=== PATIENT | female | born 1935 | race Asian ===

== ENCOUNTER 2018-12-15 14:17 | Emergency (ER) | payer MEDICARE, MEDICAID ==
[~2018-12-15] VITALS: Ht 154.9 cm; Wt 54.4 kg
[2018-12-15 14:30] VITALS: BP 139/84
[2018-12-15] MEDS ORDERED: Ipratropium 0.02% Inh Soln 2.5ml UD HHN ONE (14:30)
[2018-12-15] MEDS ORDERED: Albuterol ud Inhalation HHN ONE (14:30)
--- NOTE | 2018-12-15 14:30 | NUR ---
ED Nurse Note: pt brought in to ER by ambulance due to SOB. pt aao x0 and skin clean and intact. per daughter at bedside, pt does not have any medical history and current medications besides Alzheimer's disease.
--- NOTE | 2018-12-15 15:18 | Emergency Room Report ---
History of Present Illness General Chief Complaint: Dyspnea/Respdistress Source: Patient Present Illness HPI 83-year-old female brought via EMS for evaluation of cough congestion and respiratory distress. Daughter at bedside states that patient has had a cough times one week. Coming from home. States that patient has no medical problems. Did not receive flu shot this year as she is bedbound for the last 3 years. Does not normally go to the doctor. Afebrile. Denies chest pain or shortness of breath. Denies history of asthma or COPD. Denies smoking. No other aggravating relieving factors. Denies any other associated symptoms Allergies: Coded Allergies: No Known Allergies (Unverified , 12/15/18) Patient History Past Medical History: none Past Surgical History: none Pertinent Family History: none Social History: Denies: smoking, alcohol use, drug use Now: No Immunizations: UTD Reviewed Nursing Documentation: PMH: Agreed; PSxH: Agreed Nursing Documentation-PMH Past Medical History: No Stated History Review of Systems All Other Systems: negative except mentioned in HPI Physical Exam Vital Signs Date Time Temp Pulse Resp B/P (MAP) Pulse Ox O2 Delivery O2 Flow Rate FiO2 12/15/18 14:06 118 22 133/86 92 Non-Rebreather 15.0 Sp02 EP Interpretation: reviewed, normal General Appearance: no apparent distress, alert, GCS 15, non-toxic Head: normocephalic, atraumatic Eyes: bilateral eye normal inspection, bilateral eye PERRL ENT: hearing grossly normal, normal pharynx, no angioedema, normal voice Neck: full range of motion, supple/symm/no masses Respiratory: chest non-tender, normal breath sounds, crackles, speaking full sentences Cardiovascular #1: no edema, tachycardia Cardiovascular #2: 2+ carotid (R), 2+ carotid (L), 2+ radial (R), 2+ radial (L) , 2+ dorsalis pedis (R), 2+ dorsalis pedis (L) Gastrointestinal: normal bowel sounds, non tender, soft, non-distended, no guarding, no rebound Rectal: deferred Genitourinary: normal inspection, no CVA tenderness Musculoskeletal: back normal, gait/station normal, normal range of motion, non- tender Neurologic: alert, oriented x3, responsive, motor strength/tone normal, sensory intact, speech normal Psychiatric: judgement/insight normal, memory normal, mood/affect normal, no suicidal/homicidal ideation Reflexes: 3+ bicep (R), 3+ bicep (L), 3+ tricep (R), 3+ tricep (L), 3+ knee (R) , 3+ knee (L) Skin: normal color, no rash, warm/dry, well hydrated Lymphatic: no adenopathy Medical Decision Making Diagnostic Impression: Primary Impression: Respiratory distress Additional Impressions: Sepsis Qualified Codes: A41.9 - Sepsis, unspecified organism Dehydration UTI (urinary tract infection) Qualified Codes: N39.0 - Urinary tract infection, site not specified ER Course Hospital Course 83 yo F presents to ED c/o cough/congestion Differential diagnoses include: Pneumonia, CHF exacerbation, pneumothorax, fluid overload Clinical course Patient placed on stretcher. On radiographer cardiac catheterization with hypoxia on room air and tachycardia. After initial history and physical, I ordered nebulizer treatments. I ordered labs, IV fluids, EKG, chest x-ray, blood cultures, UA. Labs - no leukocytosis, hb/hct stable, Na elevated, trop negative, lactic elevated, UA+ bacteria, flu swab negative CXR - no focal consolidation noted EKG - sinus tachycardia, no acute ischemic changes interpreted by me ABG - no acidosis, no hypercapnia, somewhat hypoxic Patient given breathing treatments. Suctioning provided. O2 sats improved. Given antibiotics. Given 30 mL per KG fluid bolus because of insurance patient will be transferred I feel this is a highly complex case requiring extensive working including EKG/ Rhythm strip, Xray/CT/US, Blood/urine lab work, repeat exams while in ED, and administration of strong opiates/narcotics for pain control, admission to hospital or close patient follow up. Diagnosis - resp distress, sepsis, dehydration, UTI Patient admitted to telemetry in stable condition Labs Test 12/15/18 14:50 12/15/18 15:00 12/15/18 15:15 12/15/18 15:45 Arterial Blood pH 7.490 (7.350-7.450) Arterial Blood Partial Pressure CO2 31.9 mmHg (35.0-45.0) Arterial Blood Partial Pressure O2 60.5 mmHg (75.0-100.0) Arterial Blood HCO3 23.8 mmol/L (22.0-26.0) Arterial Blood Oxygen Saturation 92.5 % (95-100) Arterial Blood Base Excess 1.3 (-2-2) Tacho Test Positive White Blood Count 9.3 K/UL (4.8-10.8) Red Blood Count 4.78 M/UL (4.20-5.40) Hemoglobin 15.5 G/DL (12.0-16.0) Hematocrit 45.8 % (37.0-47.0) Mean Corpuscular Volume 96 FL (80-99) Mean Corpuscular Hemoglobin 32.4 PG (27.0-31.0) Mean Corpuscular Hemoglobin Concent 33.8 G/DL (32.0-36.0) Red Cell Distribution Width 12.9 % (11.6-14.8) Platelet Count 143 K/UL (150-450) Mean Platelet Volume 10.7 FL (6.5-10.1) Neutrophils (%) (Auto) 86.0 % (45.0-75.0) Lymphocytes (%) (Auto) 8.7 % (20.0-45.0) Monocytes (%) (Auto) 4.6 % (1.0-10.0) Eosinophils (%) (Auto) 0.0 % (0.0-3.0) Basophils (%) (Auto) 0.7 % (0.0-2.0) Sodium Level 149 MMOL/L (136-145) Potassium Level 3.9 MMOL/L (3.5-5.1) Chloride Level 114 MMOL/L (98-107) Carbon Dioxide Level 25 MMOL/L (21-32) Anion Gap 10 mmol/L (5-15) Blood Urea Nitrogen 39 mg/dL (7-18) Creatinine 1.2 MG/DL (0.55-1.30) Estimat Glomerular Filtration Rate mL/min (>60) Glucose Level 158 MG/DL (74-106) Lactic Acid Level 2.60 mmol/L (0.4-2.0) 4.30 mmol/L (0.66-2.22) Calcium Level 9.1 MG/DL (8.5-10.1) Total Bilirubin 1.2 MG/DL (0.2-1.0) Direct Bilirubin 0.2 MG/DL (0.0-0.3) Aspartate Amino Transf (AST/SGOT) 17 U/L (15-37) Alanine Aminotransferase (ALT/SGPT) 14 U/L (12-78) Alkaline Phosphatase 97 U/L (46-116) Total Creatine Kinase 25 U/L (26-308) Creatine Kinase MB 1.2 NG/ML (0.0-3.6) Creatine Kinase MB Relative Index 4.8 Troponin I 0.032 ng/mL (0.000-0.056) Pro-B-Type Natriuretic Peptide 1330 pg/mL (0-125) Total Protein 7.4 G/DL (6.4-8.2) Albumin 2.5 G/DL (3.4-5.0) Globulin 4.9 g/dL Albumin/Globulin Ratio 0.5 (1.0-2.7) Urine Color Yellow Urine Appearance Very cloudy Urine pH 6 (4.5-8.0) Urine Specific [place] 1.015 (1.005-1.035) Urine Protein 3+ (NEGATIVE) Urine Glucose (UA) Negative (NEGATIVE) Urine Ketones Negative (NEGATIVE) Urine Blood 5+ (NEGATIVE) Urine Nitrite Negative (NEGATIVE) Urine Bilirubin Negative (NEGATIVE) Urine Urobilinogen 1 MG/DL (0.0-1.0) Urine Leukocyte Esterase 2+ (NEGATIVE) Urine RBC Tntc /HPF (0 - 2) Urine WBC 20-30 /HPF (0 - 2) Urine Squamous Epithelial Cells Few /LPF (NONE/OCC) Urine Bacteria Many /HPF (NONE) EKG Diagnostic Results Rate: tachycardiac Rhythm: NSR ST Segments: no acute changes ASA given to the pt in ED: No Rhythm Strip Diag. Results EP Interpretation: yes Rhythm: NSR, no PVC's, no ectopy Chest X-Ray Diagnostic Results Chest X-Ray Diagnostic Results : Chest X-Ray Ordered: Yes # of Views/Limited/Complete: 1 View Indication: Shortness of Breath EP Interpretation: Yes Interpretation: no consolidation, no effusion, no pneumothorax, no acute cardiopulmonary disease Impression: No acute disease Electronically Signed by: Electronically signed by Josef Chu MD Last Vital Signs Date Time Temp Pulse Resp B/P (MAP) Pulse Ox O2 Delivery O2 Flow Rate FiO2 12/15/18 14:38 128 22 Non-Rebreather 10.0 12/15/18 14:30 139/84 93 Status: improved Disposition: XFER S[facility]-TRM HOSP Condition: Serious Referrals: NOT CHOSEN IPA/,REFERRING (PCP) Josef Chu MD Dec 15, 2018 15:17
[2018-12-15 15:24] LABS: HEMATOCRIT 45.8 % (37.0-47.0); HEMOGLOBIN 15.5 G/DL (12.0-16.0); MEAN CORPUSCULAR VOLUME 96 FL (80-99); PLATELET COUNT 143 K/UL (150-450); RED BLOOD COUNT 4.78 M/UL (4.20-5.40); RED CELL DISTRIBUTION WIDTH 12.9 % (11.6-14.8); WHITE BLOOD COUNT 9.3 K/UL (4.8-10.8)
[2018-12-15 15:26] LABS: BASOPHILS % (AUTO) 0.7 % (0.0-2.0); LYMPHOCYTES % (AUTO) 8.7 % (20.0-45.0); MONOCYTES % (AUTO) 4.6 % (1.0-10.0)
[2018-12-15 15:35] LABS: APPEARANCE,URINE VERY CLOUDY; BILIRUBIN, URINE NEGATIVE (NEGATIVE); GLUCOSE, URINE (UA) NEGATIVE (NEGATIVE); KETONES,URINE NEGATIVE (NEGATIVE); LEUKOCYTE ESTERASE ,URINE 2+ (NEGATIVE); NITRITE,URINE NEGATIVE (NEGATIVE); PH,URINE 6 (4.5-8.0); PROTEIN,URINE 3+ (NEGATIVE); UROBILINOGEN,URINE 1 MG/DL (0.0-1.0)
[2018-12-15 15:36] LABS: COLOR,URINE YELLOW
[2018-12-15 15:36] LABS: ANION GAP 10 mmol/L (5-15); BLOOD UREA NITROGEN 39 mg/dL (7-18); CALCIUM 9.1 MG/DL (8.5-10.1); CARBON DIOXIDE 25 MMOL/L (21-32); CHLORIDE 114 MMOL/L (98-107); CREATININE 1.2 MG/DL (0.55-1.30); POTASSIUM 3.9 MMOL/L (3.5-5.1); SODIUM 149 MMOL/L (136-145)
--- NOTE | 2018-12-15 15:42 | Diagnostic Imaging Report ---
Indication: Shortness of breath Technique: One view of the chest Comparison: none Findings: No acute infiltrates, effusions, or congestion. Tortuous calcified aorta. Normal heart size. Upper mediastinum unremarkable. Calcified granulomatous lymph nodes are seen in the left pulmonary hilum There is suggestion of an unusual 1.6 x 0.8 cm expansile lesion in the cortex of the left humerus Impression: No acute process. Unusual cortical expansile lesion in the right proximal humerus. Consider dedicated humeral radiographs for further evaluation. This finding was discussed by phone with Dr. Chu in the emergency room at the time of interpretation
[2018-12-15 15:59] LABS: ALANINE AMINOTRANSFERASE 14 U/L (12-78); ALBUMIN 2.5 G/DL (3.4-5.0); ALBUMIN/GLOBULIN RATIO 0.5 (1.0-2.7); ALKALINE PHOSPHATASE 97 U/L (46-116); ASPARTATE AMINO TRANSFERASE 17 U/L (15-37); BILIRUBIN,TOTAL 1.2 MG/DL (0.2-1.0); CKMB 1.2 NG/ML (0.0-3.6); CREATINE KINASE 25 U/L (26-308)
[2018-12-15 16:01] LABS: BILIRUBIN,DIRECT 0.2 MG/DL (0.0-0.3)
[2018-12-15 16:30] VITALS: BP 117/58
--- NOTE | 2018-12-15 17:00 | NUR ---
ED Nurse Note: Family at bedside agreed with transferring pt to [facility] and signed on transfer consent with fully understanding.
--- NOTE | 2018-12-15 18:00 | NUR ---
ED Nurse Note: Report given to ABDIRASHID Braxton at [facility].
[2018-12-15 18:26] VITALS: BP 121/88
--- NOTE | 2018-12-15 19:10 | NUR ---
ED Nurse Note: ER doctor spoke to the family about pt's condition and labs results and they verbalized understanding.
--- NOTE | 2018-12-15 19:11 | NUR ---
HAND-OFF: Report given to ABDIRASHID Collado. waiting for transporation to come.
--- NOTE | 2018-12-15 19:25 | NUR ---
ED Nurse Note: RECIEVED REPORT FROM AM NURSE TO [facility]ME [facility], PT IN BED RESTING QUIETLY, NRB MASK ON, O2 SAT=97%, NO SOB OR LABORED BREATHING NOTED AT REST, PT HAS FAMILY MEMBERS AT BEDSIDE SPEAKING WITH , PT TO BE TRANSFERRED TO [facility], WAITING FOR TRANSPORT, IV SITE PATENT, ON CARDIAC MONITORING, WILL RESUME CARE ORDERED AND CLOSELY MONITOR WHILE WAITING FOR AMBULANCE.
[2018-12-15 19:30] VITALS: BP 122/78
[2018-12-15 19:35] VITALS: BP 122/78
--- NOTE | 2018-12-15 19:48 | NUR ---
ED Nurse Note: PT BEING TRANSFERRED TO [facility], [facility] HAS ARRIVED FOR TRANSPORT, RIG#[id number], ALL TRANSFER FORMS AND INFO GIVEN TO [employer], PT BEING TAKEN VIA AMBULANCE TRANSPORT, NAD NOTED DURING TRANSFER.
== END 2018-12-15 19:35 | disposition short-term general hospital (02) ==
LOC: EDBD 14:17 → EMR 14:45
DX: A41.9 Sepsis, unspecified organism (principal); R06.03 Acute respiratory distress; N39.0 Urinary tract infection, site not specified; E86.0 Dehydration
CPT/HCPCS: 36415; 36600; 71045; 80053; 81003; 82248; 82550; 82553; 82803; 83605; 83880; 84484; 85025; 86710; 87040; 87086; 87181; 93005; 94640; 96361; 96365; 99285; J1956; J7040